=== PATIENT | male | born 1955 | race American Indian/Alaskan Native ===

== ENCOUNTER 2016-11-01 20:14 | Emergency (ER) | payer MEDICAID, OTHER ==
[2016-11-01 20:33] VITALS: BP 132/100; PULSE 98; RESP 18; TEMP 98; O2SAT 99
--- NOTE | 2016-11-01 20:52 | ED PDOC ---
Lower Extremity Pain/Injury Time Seen by Provider: 11/01/16 20:36 Chief Complaint (Nursing): Lower Extremity Problem/Injury Chief Complaint (Provider): right leg pain History Per: Patient Additional Complaint(s): Patient has history of DVT and presents to ED with right leg pain ongoing for 1 year. He states over the past month he has noticed increasing pain prompting ED visit today. He denies injury or fall, denies fever or chills. No recent travel, no chest pain, SOB or FORRESTER. Past Medical History Reviewed: Historical Data, Nursing Documentation, Vital Signs Vital Signs: Last Vital Signs Temp 98 F 11/01/16 20:31 Pulse 98 H 11/01/16 20:31 Resp 18 11/01/16 20:31 BP 132/100 H 11/01/16 20:31 Pulse Ox 99 11/01/16 20:31 - Medical History PMH: Deep Vein Thrombosis, HTN - Family History Family History: States: No Known Family Hx - Living Arrangements Living Arrangements: With Family - Social History Current smoker - smoking cessation education provided: Yes Alcohol: None Drugs: Denies - Allergies Allergies/Adverse Reactions: Allergies Allergy/AdvReac Type Severity Reaction Status Date / Time No Known Allergies Allergy Verified 11/01/16 20:31 Wells Criteria for PE - Wells Criteria for Pulmonary Embolism Clinical Signs and Symptoms of DVT: Yes P.E is #1 Diagnosis, or Equally Likely: No Heart Rate >100: No Immobilization at least 3 days;Surgery previous 4 weeks: No Previous, objectively diagnosed PE or DVT: No Hemoptysis: No Malignancy w/treatment within 6 months, or palliative: No Total Score: 3 Review of Systems ROS Statement: Except As Marked, All Systems Reviewed And Found Negative Constitutional: Negative for: Fever Cardiovascular: Negative for: Chest Pain, Palpitations Gastrointestinal: Negative for: Nausea, Vomiting Musculoskeletal: Positive for: Leg Pain (right leg pain for 1 year) Neurological: Negative for: Headache, Dizziness Physical Exam - Reviewed Nursing Documentation Reviewed: Yes Vital Signs Reviewed: Yes - Physical Exam Appears: Positive for: Well, Non-toxic, No Acute Distress Skin: Positive for: Rash (Patchy, nonspecific dermatitis noted to lateral aspect of the right lower extremity, no acute infection noted - presents for years as per patient. ) Cardiovascular/Chest: Positive for: Regular Rate, Rhythm Respiratory: Positive for: Normal Breath Sounds Extremity: Positive for: Normal ROM, Calf Tenderness (right). Negative for: Pedal Edema, Deformity, Swelling Neurologic/Psych: Positive for: Alert, Oriented, Gait (steady) - ECG O2 Sat by Pulse Oximetry: 99 Pulse Ox Interpretation: Normal - Other Rad Doppler right leg X-Ray: Read By Radiologist X-Ray Interpretation: no DVT Medical Decision Making Medical Decision Makin61 year old with chronic right leg pain, h/o DVT Plan: Doppler right leg Doppler is negative for DVT. Patient was instructed to take tylenol prn pain and he was referred to clinic for follow up. Disposition - Clinical Impression Clinical Impression: Leg pain - Patient ED Disposition Is Patient to be Admitted: No Counseled Patient/Family Regarding: Studies Performed, Diagnosis, Need For Followup - Disposition Referrals: [facility] [Outside] [facility] [Outside] Disposition: Routine/Home Disposition Time: 21:25 Condition: STABLE Additional Instructions: Tylenol for pain as needed. Follow up with clinic in 2-3 days. Instructions: Leg Pain (ED) Forms: [facility] (Rom[facility])
--- NOTE | 2016-11-02 08:22 | US ---
PROCEDURE: Right lower extremity venous duplex Doppler. HISTORY: right leg pain for 1 year COMPARISON: None available. TECHNIQUE: Common femoral, superficial femoral and popliteal veins were evaluated. Flow was assessed with color Doppler, compressibility, assessment of phasic flow and augmentation response. FINDINGS: COMMON FEMORAL VEIN: Unremarkable. SUPERFICIAL FEMORAL VEIN: Unremarkable. POPLITEAL VEIN: Unremarkable. POSTERIOR TIBIAL VEIN: Normal-appearing color Doppler blood flow. No compression or augmentation performed. OTHER FINDINGS: Enlarged lymph node is about the right groin with a prominent fatty hilum measuring 1.2 x 3.6 cm. IMPRESSION: No ultrasound evidence of deep venous thrombosis from right groin to knee as discussed above. A 3.6 cm enlarged lymph node is seen in the right groin incidentally. Concur with V rad preliminary report performed 11/01/2016.
== END 2016-11-01 23:16 | disposition home or self-care (01) ==
LOC: H.ER 20:14
DX: M79.604 Pain in right leg (principal)